=== PATIENT | female | born 1995 | race Caucasian/White ===

== ENCOUNTER 2022-06-25 14:39 | Outpatient (CLI) | payer MEDICAID ==
--- NOTE | 2022-06-25 19:39 | XRAY Report ---
PROCEDURE: Foot 3 View LT INDICATIONS: PAIN IN LEFT FOOT TECHNIQUE: 3 views of the foot were acquired. COMPARISON: None FINDINGS: Bones: No fractures or dislocations. No suspicious bony lesions. Soft tissues: No tibiotalar joint effusion. Achilles tendon appears normal. IMPRESSION: Normal left foot radiographs Reviewed by: Edilberto Cochran MD on 06/25/2022 6:38 PM [place] Approved by: Edilberto Cochran MD on 06/25/2022 6:38 PM [facility] Station ID: [id number]
== END 2022-06-25 14:40 | disposition home or self-care (01) ==
LOC: DI 14:39
PROVIDERS: ATTEND Nurse Practitioner Family
DX: M79.672 Pain in left foot (principal)